=== PATIENT | female | born 1950 | race Caucasian/White ===

== ENCOUNTER 2023-05-13 10:13 | Outpatient (CLI) | payer MEDICARE, OTHER, SELFPAY ==
[2023-05-13 10:22] VITALS: BP 153/81; PULSE 64; RESP 16; O2SAT 99
[2023-05-13] MEDS: TETRACAINE 0.5% OPHTH 1 DROP EYE-BOTH ×3 (10:25→10:54)
[2023-05-13] MEDS: BRIMONIDINE TARTRATE 0.2% OPHTH 1 DROP EYE-BOTH ×2 (10:26→11:09)
--- NOTE | 2023-05-13 11:26 | W.PM.OPTPROC ---
Procedure Note Date of procedure: 05/13/23 [facility] bill your pro fee for this procedure?: Yes Procedure Description: SURGEON: Marybeth Sharp MD PREOPERATIVE DIAGNOSIS: Posterior capsular opacity, right and left eye POSTOPERATIVE DIAGNOSIS: Posterior capsular opacity, right and left eye PROCEDURE: YAG laser capsulotomy, both eyes ANESTHESIA: Topical. ESTIMATED BLOOD LOSS: None PATHOLOGY SPECIMEN: None COMPLICATIONS: None INDICATIONS: See consult note for details. The risks, benefits and alternatives of the procedure were explained to the patient, who elected to proceed and signed informed consent to do so. PROCEDURE: The patient was brought to the pre-holding area where the right and left eyes were identified as the operative eyes. I placed my initials above the eyes. The following was given in both eyes: The patient received 2 sets of 1 drop of 0.5% tetracaine and 1 drop of 1% tropicamide. They also received 1 drop of 0.2% brimonidine. They received 1 drop of 0.5% tetracaine immediately prior to bringing them back for the procedure. The patient was then brought to the procedure room where the right and left eyes were again identified as the operative eyes. A YAG Abdias capsulotomy lens was placed on the right eye. The laser was administered using a total number of 19 shots with an energy of 2.4 mJ per shot for a total energy of 46 mJ. The patient tolerated the procedure well. A YAG Abdias capsulotomy lens was placed on the left eye. The laser was administered using a total number of 10 shots with an energy of 2.4 mJ per shot for a total energy of 24 mJ. The patient tolerated the procedure well. DISPOSITION: The patient was taken back to the pre-holding area and given 1 drop of 0.2% brimonidine in both eyes. They were discharged to home in stable condition. The patient was instructed to call me or go to the emergency department with any sudden change, including dramatic loss of vision, severe pain in the eye or eyebrow region, nausea, or vomiting. The patient was instructed to use the 0.2% brimonidine 1 drop 2 times a day in both eyes for 1 week. The patient will follow up in the clinic in 1-2 weeks.
== END 2023-05-13 11:10 | disposition home or self-care (01) ==
LOC: EYE PRC 10:15
PROVIDERS: PCP Student in an Organized Health Care Education/Training Program; Visit Provider Ophthalmology
DX: H26.9 Unspecified cataract (principal)
CPT/HCPCS: 66821; A9270

== ENCOUNTER 2025-02-14 11:15 | Outpatient (RCR) | payer MEDICARE, OTHER, SELFPAY ==
--- NOTE | 2025-01-03 17:14 | PT.OPEX ---
[facility] Outpatient Eval PT [facility] Outpatient Eval Start: 01/03/25 09:19 Freq: Status: Active Protocol: Document 01/03/25 11:47 GEN (Rec: 01/03/25 16:54 GEN [id number]) E-signed By Loren Collins DPT Physical Therapy Outpatient Evaluation Insurance Information Recert Due Date 04/03/25 Insurance Name Medicare B,[employer] Medical Diagnosis L knee OA Treating Diagnosis L knee pain, impaired L knee ROM, limited tolerance for extended standing/walking/ stairs Subjective Subjective Patient reports chronic L knee pain with L knee OA. States she typically has some L knee soreness that is tolerable/ manageable. She had a fall at the airport in [place] on Dec 10 and landed on her L knee. She had some swelling and bruising after the fall but didn't really have increased pain/soreness until a couple of weeks later. Now she is having increased L knee pain with walking, stairs. She is using tylenol regularly, ibuprofen as needed. Hasn't been using ice, heat, or any ointments. Patient reports trying a velcro knee support brace this past week. It feels good, supportive, but still has increased pain with walking. Patient denies pain at rest. Pain rated 5/10 with walking. Patient denies any other falls, does not use an AD. She had R TKA in 2020. Patient had an appt with Dr Sharp, xrays showed L knee OA . Patient states she will likely need a L TKA but is hoping to wait until later this year, maybe in the Fall. Date of Last Physician Visit 01/02/25 Current Work Status Retired Precautions Treatment Precautions/Contraindications Thyroid cancer 1975 R TKA 2020 L knee OA Assessment Assessment/Impression Patient is a 74 year old female with L knee pain, impaired L knee ROM, limited tolerance for extended standing/walking/stairs. Patient denies pain at rest, increased to 5/10 with walking . She reports a fall on Dec 10 at the [place] [facility]. Denies any other issues with falls, balance. She does not use an AD. Patient is tender with palpation L distal knee region, around distal pole of the patella, and patella tendon. She reports having xrays that showed L knee OA. Patient is hoping to wait on a L TKA until later this year. L knee ROM 0-3-115 degrees. R knee ROM 0-3-120 degrees. Patient also reports a hx of LBP issues, prior LB and neck surgeries. Patient with some general core/hip/glut/LE weakness but overall, strength is functional. Trial this session with a cane and a FWW. Patient reports decreased L knee pain with use of an AD. She has both a cane and a FWW at home to use as needed. Recommended patient use an AD over the next couple of weeks to avoid flare ups of pain with walking activities, allow for some time to heal. Able to initiate some exercises this session. Patient set up with a HEP. Patient would benefit from skilled PT for pain/sx management, improved L knee ROM, general core/hip/ glut/LE strengthening, gait training, and establishment of HEP. Plan of Care Rehabilitation Potential Good Physical Therapy Goals 1. Decrease L knee pain at less than/equal to 3/10 with daily activities and with the progression of PT activities over the next 6-8 weeks. 2. Improve L knee flex ROM to 120 degrees over the next 6-8 weeks for improved mobility with transfers, daily activities, and improve mobility/gait. 3. Improve core/hip/glut/LE strength over the next 10-12 weeks for improved gait, improved tolerance for extended standing/walking with or without an AD without flare up of L knee pain per PLF. 4. Improve balance/ proprioception over the next 10-12 weeks for improved stability with static/dynamic activities , improved gait, and improved safety with amb. 5. Patient will be I with HEP within 12 weeks for progression toward above goals, ongoing self management of pain/sx, ongoing self improvements in core/hip/glut/LE strength, and for return to PLF including extended standing/walking/stairs without flare up of pain. Coordination/Communication With Referral Source Treatment Plan/Direct Interventions Gait Training,Manual Therapy, Therapeutic Exercises Frequency/Duration 1x/week Patient Will Be Discharged From Therapy Completion of LTG(s),Skills Plateau,Independent w/HEP, Independently Progressing Evaluation Billing Untimed Code Treatment Minutes 25 Complexity Moderate Certification Information Initial Certification Date 01/03/25 Ending Certification Date 04/03/25 Provider Signature Required Yes Provider Signature Shows Agreement With POC & Medical Necessity Physician NPI Number Write NPI# Here Physician Comment/Change : Physician Signature & Date Requested Please Sign/Date Here
== END 2025-06-14 23:59 | disposition home or self-care (01) ==
PROVIDERS: PCP Student in an Organized Health Care Education/Training Program; Visit Provider Orthopaedic Surgery
DX: M17.12 Unilateral primary osteoarthritis, left knee (principal); Z51.89 Encounter for other specified aftercare
CPT/HCPCS: 97110; 97162